=== PATIENT | female | born 2005 | race Caucasian/White ===

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

== ENCOUNTER 2024-08-01 11:35 | Day surgery (SDC) | payer MEDICAID, SELFPAY ==
[2024-08-01 12:08] LABS: Internal QC Validated? YES +Cl - CLEAR BKGD; Pregnancy, Urine Negative Negative; Record Kit Lot#,Urine Preg HCG0000772476
--- NOTE | 2024-08-01 12:10 | PRE.ANES_ITS ---
ASA Classification* ASA Classification ASA Classification: 2 Assessment & Plan Anesthesia* Anesthesia Assessment Anesthesia Assessment: Discussed sedation and/or anesthesia options, risks, benefits, and alternatives with patient/parents/legal guardian/POA. Questions invited. The patient/parents/legal guardian/POA seems to understand and agrees to proceed with anesthesia plan. Reviewed the physical assessment, medical history, allergy history and patient home medications list prior to surgery/procedure/anesthetic and documented any changes. Performed airway and anesthesia risk assessments. Anesthesia Type Anesthesia Type: General Anesthesia Focused Assessment* Airway Assessment Mouth opens: >3 cm Mallampati Score: II Focused Labs Anesthesia Preop lab: CBC WBC 8.5 K/mm3 (4.4-11.0) 07/20/22 11:17 RBC 4.88 M/mm3 (4.2-5.4) 07/20/22 11:17 Hgb 14.5 g/dL (12.0-15.0) 07/20/22 11:17 Hct 43.4 % (37-47) 07/20/22 11:17 Plt Count 313 K/mm3 (150-450) 07/20/22 11:17 CHEMISTRY Potassium 4.3 mmol/L (3.5-5.1) 07/20/22 11:17 Sodium 140 mmol/L (136-145) 07/20/22 11:17 BUN 12 mg/dL (7-18) 07/20/22 11:17 Creatinine 0.75 mg/dL (0.55-1.02) 07/20/22 11:17 Glucose 82 mg/dL (74-106) 07/20/22 11:17 TSH 0.96 uIU/mL (0.358-3.74) 07/20/22 11:17 COAG PT 13.7 SECONDS (11.7-14.9) 07/20/22 11:17 Urine Test Negative Negative 08/01/24 11:48 Pre-Assessment Diagnosis/Proposed Procedure Planned Operative Procedure(s): Hernia, Umbilical Repair Anesthesia History Anesthesia History - account support manager: Anesthesia History - account support manager Hx Hospitalization No 07/25/24 13:54 Any Problems With Anesthesia No 07/25/24 13:54 Cholinesterase deficiency No 07/25/24 13:54 You/Your Family Experience No 07/25/24 13:54 fever (hyperthermia) with Relationship Recent Exposure to Contagious Disease Does patient have nerve No 07/25/24 13:54 stimulator Patient instructed to have device shut off --Does patient have Pacemaker or ICD? When Was Last Pacemaker Check QUESTION #4 FULL TEXT: You/Your Family Experience fever (hyperthermia) with Anesthesia Last Oral Intake Last Oral intake: Last Oral Intake NPO since Meds taken in AM with sips of water? Meds patient instructed to take am of surgery PONV PONV - account support manager: PONV - account support manager Female Yes 07/25/24 13:54 HX of Motion Sickness Yes 07/25/24 13:54 HX of N/V After Surgery No 07/25/24 13:54 Non-Smoker No 07/25/24 13:54 Duration of Surgery greater Yes 07/25/24 13:54 than 60 minutes Number of Risk Factors 3 07/25/24 13:54 PONV Score Moderate Risk 07/25/24 13:54 Height & Weight Height & Weight: Anesthesia: Height & Weight Height 5 ft 07/21/24 13:55 Respiratory Assessment Respiratory Assessment - account support manager: Respiratory Tract Infection Hx - account support manager Hx Respiratory Tract Infection No 07/25/24 13:54 STOP Sleep Apnea STOP Sleep Apnea - account support manager: STOP Sleep Apnea - account support manager Hx Hypertension No 07/25/24 13:54 Hx Sleep Apnea No 07/25/24 13:54 CPAP BIPAP Do you snore loudly (louder No 07/25/24 13:54 than talking or can be heard Do you often feel tired/ No 07/25/24 13:54 fatigued/ sleepy during daytime? Has anyone observed you stop No 07/25/24 13:54 breathing during sleep? STOP Results Negative 07/25/24 13:54 QUESTION #5 FULL TEXT : Do you snore loudly (louder than talking or can be heard through closed doors)? Tobacco Use History Tobacco Use History - account support manager: Tobacco Use History - account support manager Tobacco Use Smoking Status Current some day smoker 07/25/24 13:54 Hx Tobacco Use Yes 07/25/24 13:54 Years Smoking Packs Smoked per Day Smoking Cessation Date was within the last 15 years Hx Smoking Cessation Date Hx Smoking Cessation Counseling Hematologic Medial History Hematologic Hx - account support manager: Hematologic Medical Hx - desilverizer Hx of Blood Transfusion No 07/25/24 13:54 Hx of Transfusion in last 3 No 07/25/24 13:54 Months Date of Last Transfusion (if within last 3 months) Ever experience any problems No 07/25/24 13:54 with transfusion(s)? Specify any problems Hx of Preganancy in last 3 No 07/25/24 13:54 Months Nurse Filling Out Transfusion VCHRISTIN 07/25/24 13:54 & Questions: Date: 07/25/24 07/25/24 13:54 Time: 13:55 07/25/24 13:54 Patient unable to answer at this time (ie. confused, unrespo /Reproduction History /Reproductive History - account support manager: /Reproductive Hx- account support manager Hx Now No 07/25/24 13:54 Gestational Age (in weeks): EDC: Hx Hx Para Hx Section SAB No 07/25/24 13:54 Active Medications Active Medications: Current Medications Generic Name Dose Route Start Last Admin Trade Name Freq PRN Reason Stop Dose Admin Lactated Ringer's 1,000 mls @ 15 mls/hr 08/01/24 12:00 IV .Q48H KRYSTA PFSH Medical History Wears glasses Gastric reflux Smoker Acid reflux Scoliosis Home Medications ?Medication ?Instructions ?Recorded ?Last Taken ?Type cholecalciferol (vitamin D3) 25 25 mcg PO QDAY 07/21/24 Unknown History mcg (1,000 unit) capsule Allergy/AdvReac Type Severity Reaction Status Date / Time No Known Allergies Allergy Verified 07/25/24 13:49 Family History Father CVA (cerebral vascular accident) Mother Hypertension Surgical History Hx of wisdom tooth extraction Social History Smoking Status: Current some day smoker tobacco type: e-cigarettes Review of Systems (Anesthesia) ROS Narrative System reviewed and no additional complaints, except as documented.
[2024-08-01] MEDS: Lactated Ringers 1,000 ML 15 ML IV (12:12)
[2024-08-01 12:14] VITALS: BP 98/67; PULSE 79; RESP 16; TEMP 36.4; O2SAT 100; BMI 21.5
--- NOTE | 2024-08-01 12:20 | EKG12_ITS ---
Test Reason : preop Blood Pressure : / mmHG Vent. Rate : 068 BPM Atrial Rate : 068 BPM P-R Int : 136 ms QRS Dur : 080 ms QT Int : 414 ms P-R-T Axes : 031 078 067 degrees QTc Int : 440 ms Normal sinus rhythm with sinus arrhythmia Normal ECG No previous ECGs available Confirmed by ANIBAL SCHULZ, HERIBERTO ([id number]), associate entertainment editor LEROY LOUISE ([id number]) on 08/07/2024 1:09:06 PM Referred By: Jeffery Em Confirmed By:HERIBERTO BARNETT MD
--- NOTE | 2024-08-01 13:15 | HERN_PTH ---
PATIENT: SUSAN WATERS LOC: [facility] [place] U#:[id number] AGE/SX: 19/F ROOM: RE08/01/[address]: Dr. Jeffery Em MD : 2005 BED: DIS: 08/01/2024 SPEC #: [id number] RECD: 08/01/24 17:10 STATUS: THEODORA KAROLYN #: [id number] SID: 08/01/24 13:[address]: Jeffery Em DEPT: SURGICAL PATHOLOGY RECD BY: Do Bravo ENTERED: 08/04/24 10:55 SP TYPE: Hernia OTHR DR: KIARRA Vaughan Tissues: HERNIA Procedures: Surgery Specimen Level II HEADER OPERATION: Hernia, umbilical repair PRE-OP DIAGNOSIS: Umbilical hernia TISSUE SUBMITTED: Umbilical sac hernia contents MICROSCOPIC DIAGNOSIS Umbilical hernia and contents, herniorrhaphy: Fragments of benign fibrofatty and fibrovascular tissue. AM.mr 08/05/2024 COMMENT The findings are consistent with hernia sac and contents. MICROSCOPIC DESCRIPTION Slides are reviewed. GROSS DESCRIPTION Received in fixative is one container labeled with the patient's name and designated Umbilical hernia sac and contents. The specimen consists of multiple pieces of yellow adipose tissue that in aggregate measure 3.5 x 2.0 x 1.0cm. Sections do not reveal any mass lesions. Claims Counsel sections are submitted in one cassette. 08/04/2024 TC:5 CPT:31625
--- NOTE | 2024-08-01 14:29 | HP.PCM_ITS ---
HPI - General General Date of Admission: 08/01/24 Date of Service: 08/01/24 Chief Complaint: Umbilical hernia HPI Narrative SUSAN WTAERS, is a 19 F who presents today for elective umbilical hernia repair. She has a small sometimes painful bulge just above the umbilicus. [facility] Medical History Wears glasses Gastric reflux Smoker Acid reflux Scoliosis Home Medications ?Medication ?Instructions ?Recorded ?Last Taken ?Type cholecalciferol (vitamin D3) 25 25 mcg PO QDAY 07/21/24 Unknown History mcg (1,000 unit) capsule Allergy/AdvReac Type Severity Reaction Status Date / Time No Known Allergies Allergy Verified 07/25/24 13:49 Family History Father CVA (cerebral vascular accident) Mother Hypertension Surgical History Hx of wisdom tooth extraction Social History Smoking Status: Current some day smoker tobacco type: e-cigarettes ROS Constitutional Constitutional: Reports systems reviewed and no addt'l complaints, except as documented Eyes Eyes: Reports systems reviewed and no addt'l complaints, except as documented ENT HEENT: Reports systems reviewed and no addt'l complaints, except as documented Cardiovascular Cardiovascular: Reports systems reviewed and no addt'l complaints, except as documented Respiratory/Chest Respiratory/Chest: Reports systems reviewed and no addt'l complaints, except as documented Gastrointestinal Gastrointestinal: Reports systems reviewed and no addt'l complaints, except as documented Vital Signs Vital Signs Vital Signs: 08/01/24 12:14 08/01/24 12:14 Temperature 97.5 F L Temperature Source Temporal Pulse Rate 79 Respiratory Rate 16 Respiratory Pattern Normal Blood Pressure 98/67 Blood Pressure Mean 77 Blood Pressure Source Monitor Blood Pressure Position Semi-Fowlers Blood Pressure Location Left Arm Pulse Ox 100 Oxygen Delivery Method Room Air Weight Weight: 110 lb 3.698 oz Body Mass Index (BMI) 21.5 Physical Exam Narrative She is alert and oriented x 3. She is in no acute distress. Head is normocephalic and atraumatic. Pupils equal round reactive to light. Results Lab / Micro Data Labs: Laboratory Results - last 24 hr 08/01/24 11:48: Urine Test Negative Assessment & Plan Assessment/Plan (1) Umbilical hernia: PLAN: Plan The patient is a 19-year-old female with a small periumbilical hernia just above the umbilicus. I recommended hernia repair. We have discussed the details of the planned procedure including the risks, benefits, and alternatives. She wishes to proceed. This will be scheduled in a timely manner. Charges/Coding Visit Charges Inpatient E&M: 12190 Init Hosp L1
[2024-08-01] MEDS: Bupiv/Epi 0.25% 30 ML Vial (14:56)
--- NOTE | 2024-08-01 15:02 | DCINST_ITS ---
Discharge Instructions Diet Discharge Diet: Light diet - advance as tolerated Activity Discharge Activity: Return to Normal Activity Additional Activity Instructions:: Avoid lifting over 20 pounds for 6 weeks Dressing / Incision Call your doctor if your incision/area has: Continuous Slow Oozing, Sudden Increased Bleeding, Increased Pain/ Swelling, Increased Redness, Foul Smelling Discharge and Swelling at the incision site Call your doctor if you observe: Fever of 101 or Higher Cleanse incision/area with: Soap & Water Follow Up Care Please Follow Up With: Jeffery Em MD When: 2 weeks Test Results: Test results from this visit will be discussed in further detail at your follow- up appointment, if applicable. Discharge Plan Admission Primary Reason for Your Visit: Umbilical hernia repair Attending Provider: Jeffery Em Primary Care Provider: Sasha Mcwilliams NP Instructions Print Language: Persian Discharge Orders/Prescriptions Prescriptions: New oxycodone-acetaminophen [Percocet] 5-325 mg tablet 1 tab PO Q8H PRN (Reason: pain) 3 Days Qty: 8 0RF Continued cholecalciferol (vitamin D3) 25 mcg (1,000 unit) capsule 25 mcg PO QDAY Referrals / Follow Up: Sasha Mcwilliams NP, INCIDENT RESPONSE ENGINEER-C [Primary Care Provider] - Disposition Disposition (needs filled in before D/C Order can be placed): Home, Self Care
--- NOTE | 2024-08-01 15:06 | PCM.OPRPT ---
Problems Associated Problem List Diagnoses (1) Umbilical hernia: Report of Operation Date of Procedure: 08/01/24 Pre-Operative Diagnosis: Joanne - umbilical hernia Post-Operative Diagnosis: Same Surgery/Procedure Performed:: Repair of joanne-umbilical hernia Surgeon: Jeffery mE quotation checker: None quotation checker: Winifred Bishop Type of Anesthesia: MAC Anesthesiologist: Davian Soria Specimen's removed: Umbilical hernia sac and contents Drains: None Estimated Blood Loss (mL): 2 mL Description of Procedure: The patient is a 19-year-old female who was recently seen through the office with umbilical pain and a possible hernia. On examination she had a small bulge/hernia about 2 cm above the umbilicus. This was extremely subtle and was only really palpable when standing. I offered her hernia repair surgery. Due to the small size I felt that primary repair would be sufficient to close the fascial defect. We discussed the details of the planned procedure and she wished to proceed. The patient was brought to the operating room today following informed consent. She was placed supine on the operative table with arms outstretched on arm boards. Once adequately anesthetized the abdomen was then prepped and draped in the usual sterile manner. The site of the hernia was identified preoperatively with the patient in the standing position. A small lina was made in the skin to indicate the site of the hernia. This area was then injected with local anesthetic in the operating room. A #15 blade was then used to make about a 1-1/2 to 2 cm incision overlying the hernia. Bovie electrocautery was then used to dissect down through subtenons tissues down to the level of the fascial defect. This was a very small fat-containing hernia. The actual fascial defect was probably 3 to 4 mm at most. The hernia sac and contents were excised. The fascial edge was cleared. The fascial defect was then closed using 0 Nurolon placed in a [id number] manner. This closed the fascia nicely. 3-0 Vicryl was used to reapproximate the subdermal layer and 5-0 Vicryl was used to close the skin. Skin glue was applied as dressing. She was awakened anesthesia and taken the PACU in good condition. No resident was able to assist with the surgery and so an HEALTH ASSESSMENT AND TREATMENT TEACHER was utilized as a obstetric assistant. Her role included assistance with skin closure and dressing application Complications None Procedures Digestive [id number]: [id number] RPR AA HRN 1ST < 3 CM RDC
[2024-08-01 15:10] VITALS: BP 98/50; BP 98/67; PULSE 81; RESP 16; TEMP 36.3; O2SAT 100
[2024-08-01 15:15] VITALS: BP 108/50; BP 98/67; PULSE 79; RESP 16; O2SAT 100
[2024-08-01 15:20] VITALS: BP 104/66; BP 98/67; PULSE 67; RESP 16; TEMP 36.2; O2SAT 100
[2024-08-01 15:45] VITALS: BP 122/80; BP 98/67; PULSE 72; RESP 16; TEMP 36.4; O2SAT 100
--- NOTE | 2024-08-01 16:00 | PCM.POST.ANE ---
Anesthesia: Postop Eval I Current Vital Signs Temperature: 97.5 F Pulse Rate: 72 Blood Pressure: 122/80 Respiratory Rate: 16 Pulse Ox: 100 Assessment Airway patent: Yes Spontaneous unlabored respirations: Yes nausea: No Vomiting: No Anesthesia Complication: No Fluid Hydration Crystalloid volume administer (ml): 400 Total IV fluid infused: 400 Progress Note Anesthesia document: Postop Eval 1 completed: Yes
--- NOTE | 2024-08-01 16:06 | PCM.POSTANE2 ---
Anesthesia Postop Eval I Sum Anesthesia Postop Eval I Summary Anesthesia Postop Eval I Summary: Anesthesia Postop Eval I: Assessment Summary Airway patent Spontaneous unlabored respirations Mental status nausea Vomiting Anesthesia Postop Eval I: Fluid Summary Crystalloid volume administer (ml) Colloids volume administered ( ml) Blood Product volume administered (ml) Total IV fluid infused Anesthesia Postop Eval I: Summary Notes Anesthesia Complication Anesthesia Complication Comment: Post-operative progress note Anesthesia: Postop Eval II Evaluation Mental status: Awake and Calm Pain Level: 1 nausea: No Vomiting: No Complications Anesthesia Complication: No
[2024-08-02 10:04] VITALS: BP 122/80; PULSE 72; RESP 16; TEMP 36.4; O2SAT 100
== END 2024-08-01 15:55 | disposition home or self-care (01) ==
LOC: SDC 11:38 → AC 11:39
PROVIDERS: Anesthesiology; PCP Nurse Practitioner Family; Referring Provider Surgery; Visit Provider Surgery
PROC: (CPT 49591; principal; 2024-08-01 13:00)
DX: K42.9 Umbilical hernia without obstruction or gangrene (principal); F17.290 Nicotine dependence, other tobacco product, uncomplicated; K21.9 Gastro-esophageal reflux disease without esophagitis
CPT/HCPCS: 49591; 00834; 81025; 88302; 93005; J7120; J2405